=== PATIENT | female | born 1945 | race Caucasian/White ===

== ENCOUNTER → 2017-03-23 | Outpatient (REF) | payer MEDICARE, BC ==
[~2017-03-23] MED LIST: ATEN100T PO; CORE12.5 PO; ELIQ5TAB PO; HYDR12.55 PO; PACE200T PO; SIMV40TA2 PO
== END ==
LOC: M LAB REF 17:03
PROVIDERS: ATTEND Internal Medicine Medical Oncology
DX: D75.1 Secondary polycythemia (principal)

== ENCOUNTER 2023-12-31 19:25 | Inpatient (IN) | payer BC, MEDICAID ==
[~2023-12-31] VITALS: Ht 165.1 cm; Wt 76.4 kg
[~2023-12-31 19:25] MED LIST changes: -SIMV40TA2 PO; +SIMV40TA20 PO
[2023-12-31 20:14] LABS: BASO % 0.3 % (0.0-1.0); HEMATOCRIT 52.8 % (36.0-47.0); HEMOGLOBIN 17.6 g/dl (12.0-15.5); LYMPH # 0.7 10^3/uL (1.5-5.0); LYMPH % 6.8 % (24.0-44.0); MEAN CORPUSCULAR HEMOGLOBIN 30.8 pg (27.0-33.0); MEAN CORPUSCULAR HGB CONC 33.3 g/dl (32.0-36.5); MEAN CORPUSCULAR VOLUME 92.5 fl (80.0-96.0); MONO # 0.9 10^3/uL (0.0-0.8); MONO % 8.4 % (2.0-8.0); RED BLOOD COUNT 5.71 10^6/uL (4.00-5.40); WHITE BLOOD COUNT 10.7 10^3/uL (4.0-10.0)
[2023-12-31 20:29] LABS: INR 2.74; PARTIAL THROMBOPLASTIN TIME 40.6 SECONDS (24.8-34.2)
[2023-12-31 20:52] LABS: PLATELET COUNT, AUTOMATED 66 10^3/uL (150-450)
[2023-12-31 21:38] LABS: CK-MB VALUE MASS 60.3 NG/ML (<3.6)
[2023-12-31 21:39] LABS: MB/CK RELATIVE INDEX 8.04 (< OR =4)
[2023-12-31 21:44] LABS: CALCIUM LEVEL 9.4 MG/DL (8.3-10.6); CREATININE FOR GFR 2.39 MG/DL (0.55-1.30); POTASSIUM SERUM 5.5 MMOL/L (3.5-5.1)
[2023-12-31 21:47] LABS: FREE T4 0.94 NG/DL (0.89-1.76); THYROID STIMULATING HORMONE 0.153 uIU/ML (0.55-4.78)
[2023-12-31 21:51] LABS: PROCALCITONIN 0.45 ng/ml
[2023-12-31 21:53] LABS: ABG BASE EXCESS -6.4 (-2.0-2.0); ABG HCO3 15.7 MMOL/L (22.0-26.0); ABG O2 SATURATION 95.6 % (95.0-99.0); ABG PARTIAL PRESSURE CO2 25.2 mmHg (35.0-45.0); ABG PARTIAL PRESSURE O2 81.2 mmHg (75.0-100.0); ABG STANDARD HCO3 19.3 MMOL/L. (22.0-26.0); ABG TOTAL CO2 16.5 MMOL/L (23.0-31.0); ABG pH (ARTERIAL) 7.413 UNITS (7.350-7.450)
[2023-12-31] MEDS: PIPERACILLIN/TAZOBACTAM SOD 4.5 GM in D5W MINI-BAG PLUS 50 ML IV ONE (22:10)
[2023-12-31] MEDS: FUROSEMIDE 40MG/4ML VIAL IV ONE (22:11)
[2023-12-31 22:52] LABS: CK-MB VALUE MASS 61.1 NG/ML (<3.6)
[2023-12-31 23:35] LABS: MB/CK RELATIVE INDEX 8.58 (< OR =4)
[2024-01-01] MEDS ORDERED: DIGOXIN INJ 0.5 MG/2 ML AMP IV STA (00:48)
[2024-01-01] MEDS: dilTIAZem 25MG/5ML VIAL IV STA (00:54)
[2024-01-01] MEDS ORDERED: med rec comment (01:37)
[2024-01-01] MEDS ORDERED: HOME MED LIST COMPLETE! XX SCH (01:40)
[2024-01-01 02:03] LABS: DIGOXIN LEVEL 0.1 NG/ML (0.8-2.0)
[2024-01-01] MEDS: FUROSEMIDE 100MG/10ML VIAL IV STA (02:15)
[2024-01-01] MEDS: DOXYCYCLINE HYCLATE 100MG TABLET PO SCH (02:15)
[2024-01-01 03:20] VITALS: BP 143/97; TEMP 96.5; O2SAT 90
[2024-01-01 05:23] VITALS: BP 140/70
[2024-01-01] MEDS: CARVedilol 3.125 MG TAB PO ONE (05:23)
[2024-01-01] MEDS: cefTRIAXone SOD 1 GM in D5W MINI-BAG PLUS 50 ML IV SCH (05:23)
[2024-01-01 06:06] LABS: HEMATOCRIT 50.9 % (36.0-47.0); HEMOGLOBIN 17.6 g/dl (12.0-15.5); MEAN CORPUSCULAR HEMOGLOBIN 31.3 pg (27.0-33.0); MEAN CORPUSCULAR HGB CONC 34.6 g/dl (32.0-36.5); MEAN CORPUSCULAR VOLUME 90.4 fl (80.0-96.0); RED BLOOD COUNT 5.63 10^6/uL (4.00-5.40)
[2024-01-01 06:08] LABS: PLATELET COUNT, AUTOMATED 53 10^3/uL (150-450)
[2024-01-01 06:36] LABS: CK-MB VALUE MASS 47.2 NG/ML (<3.6)
[2024-01-01 06:38] LABS: BILIRUBIN,TOTAL 2.4 MG/DL (0.3-1.2); CALCIUM LEVEL 9.2 MG/DL (8.3-10.6); CREATININE FOR GFR 2.4 MG/DL (0.55-1.30); GLOMERULAR FILTRATION RATE 20.9 (>39); MAGNESIUM LEVEL 2.2 MG/DL (1.8-2.4); POTASSIUM SERUM 5.4 MMOL/L (3.5-5.1); TOTAL PROTEIN 5.2 G/DL (5.7-8.2)
[2024-01-01 06:43] LABS: MB/CK RELATIVE INDEX 9.32 (< OR =4)
[2024-01-01 06:44] LABS: PROCALCITONIN 0.4 ng/ml
[2024-01-01 08:02] VITALS: BP 115/89; TEMP 97; O2SAT 98
[2024-01-01] MEDS ORDERED: ASPIRIN 81MG ENTERIC TABLET PO SCH (09:00)
[2024-01-01] MEDS: FUROSEMIDE 100MG/10ML VIAL IV SCH (09:57)
[2024-01-01] MEDS: PANTOPRAZOLE 40MG TAB (PROTONIX) PO SCH (09:59)
[2024-01-01] MEDS: APIXABAN 5 MG TAB (ELIQUIS) PO SCH (09:59)
[2024-01-01] MEDS: metOLazone 5 MG TAB PO ONE (11:30)
[2024-01-01] MEDS: ACETAMINOPHEN TAB 650MG DOSE (2X325MG) PO PRN (11:31)
[2024-01-01 12:00] VITALS: BP 128/74; TEMP 98; O2SAT 90
[2024-01-01] MEDS ORDERED: HEPARIN SOD (PORCINE) 5000UNITS/ML 1ML VIAL/SYRINGE IV ONE (13:35)
[2024-01-01 14:06] LABS: CALCIUM LEVEL 8.7 MG/DL (8.3-10.6); CREATININE FOR GFR 2.32 MG/DL (0.55-1.30); GLOMERULAR FILTRATION RATE 21.7 (>39); POTASSIUM SERUM 4.9 MMOL/L (3.5-5.1)
[2024-01-01 14:20] LABS: HEPATITIS B SURFACE ANTIGEN NEGATIVE (NEGATIVE)
[2024-01-01 14:41] LABS: HEPATITIS C VIRUS ABY INDEX < 0.02 INDEX (<0.8)
[2024-01-01 14:42] LABS: HEPATITIS B CORE ANTIBODY IGM NEGATIVE (NEGATIVE)
[2024-01-01 15:15] LABS: PARTIAL THROMBOPLASTIN TIME 43.2 SECONDS (24.8-34.2)
[2024-01-01 15:37] LABS: FOLATE 8.4 NG/ML (>5.4)
[2024-01-01 15:39] LABS: VITAMIN B12 LEVEL > 2000 PG/ML (211-911)
[2024-01-01 15:42] LABS: FIBRINOGEN 102 MG/DL (268-480); INR 2.68; PROTHROMBIN TIME 27.5 SECONDS (12.5-14.5)
[2024-01-01 16:20] VITALS: BP 109/72; TEMP 97.5; O2SAT 99
[2024-01-01 16:20] LABS: D-DIMER QUANT > 20.00 ug/mL (<0.5)
[2024-01-01 18:34] VITALS: BP 115/80; TEMP 97; O2SAT 93
[2024-01-01] MEDS ORDERED: CARVedilol 3.125 MG TAB PO SCH (21:00)
[2024-01-01] MEDS ORDERED: HEPARIN SOD (PORCINE) 5000UNITS/ML 1ML VIAL/SYRINGE IV PRN (21:00)
[2024-01-01] MEDS ORDERED: HEPARIN DRIP 25,000 UNITS in IV 1 EA IV SCH (21:00)
[2024-01-01] MEDS ORDERED: NYSTATIN 100,000 UNITS/GM TOPICAL PWD 15GM TOP SCH (21:00)
== END 2024-01-01 19:04 | disposition short-term general hospital (02) | DRG 194 ==
LOC: M ED 19:25 → EDBD 19:25 → M ED INP 01-01 01:18 → M PCU 01-01 02:57
PROVIDERS: ADMIT Preventive Medicine Undersea and Hyperbaric Medicine; ATTEND Preventive Medicine Undersea and Hyperbaric Medicine
PROC: B246ZZZ Ultrasonography of Right and Left Heart (ICD-10-PCS; principal; 2024-01-01)
DX: I11.0 Hypertensive heart disease with heart failure (principal); J96.01 Acute respiratory failure with hypoxia; N17.9 Acute kidney failure, unspecified; J18.9 Pneumonia, unspecified organism; L89.152 Pressure ulcer of sacral region, stage 2; D69.6 Thrombocytopenia, unspecified; I27.20 Pulmonary hypertension, unspecified; I48.20 Chronic atrial fibrillation, unspecified; I70.223 Atherosclerosis of native arteries of extremities with rest pain, bilateral legs; J44.0 Chronic obstructive pulmonary disease with (acute) lower respiratory infection; D75.1 Secondary polycythemia; I73.9 Peripheral vascular disease, unspecified; Z79.01 Long term (current) use of anticoagulants; E66.9 Obesity, unspecified; E78.5 Hyperlipidemia, unspecified; M19.90 Unspecified osteoarthritis, unspecified site; Z88.1 Allergy status to other antibiotic agents; Z68.36 Body mass index [BMI] 36.0-36.9, adult; I50.9 Heart failure, unspecified

== ENCOUNTER → 2024-01-09 | Outpatient (REF) ==
[~2024-01-09] MED LIST changes: +ASPI81TA26 PO; +BUSP5TA PO; +DULC10SU2 PR; +FURO20TA2 PO; +METH25TAB PO; +METO1TAB7 PO; +MIDO5TA PO; +MILKSUS3 PO; +MIRA3350 PO; +PANT20TA6 PO; +POTA-151 PO; +SERT-141 PO; +SIMV10TA21 PO; +SPIR-10 PO; +med rec comment
[2024-01-09 08:25] LABS: HEMATOCRIT 43.2 % (36.0-47.0); HEMOGLOBIN 14.8 g/dl (12.0-15.5); MEAN CORPUSCULAR HEMOGLOBIN 31.2 pg (27.0-33.0); MEAN CORPUSCULAR HGB CONC 34.3 g/dl (32.0-36.5); MEAN CORPUSCULAR VOLUME 91.1 fl (80.0-96.0); RED BLOOD COUNT 4.74 10^6/uL (4.00-5.40); WHITE BLOOD COUNT 11.1 10^3/uL (4.0-10.0)
[2024-01-09 08:29] LABS: PLATELET COUNT, AUTOMATED 75 10^3/uL (150-450)
[2024-01-09 08:54] LABS: ALKALINE PHOSPHATASE 107 U/L (46-116); ALT/SGPT 32 U/L (7.0-40); AST/SGOT 30 U/L (<34); BILIRUBIN,TOTAL 1.4 MG/DL (0.3-1.2); BLOOD UREA NITROGEN 65 MG/DL (9-23); CALCIUM LEVEL 7.8 MG/DL (8.3-10.6); CARBON DIOXIDE LEVEL > 40.0 MMOL/L (20-31); CHLORIDE LEVEL 93 MMOL/L (98-107); CHOLESTEROL LEVEL 87 MG/DL (<200); CHOLESTEROL RISK RATIO 4.06 (<5); GLOMERULAR FILTRATION RATE 57.4 (>39); GLUCOSE, FASTING 81 MG/DL (74-106); HDL CHOLESTEROL 21.4 MG/DL (>40); LDL CHOLESTEROL 46.2 MG/DL (<100); NON-HDL-C 65.6 MG/DL; POTASSIUM SERUM 3.1 MMOL/L (3.5-5.1); SODIUM LEVEL 137 MMOL/L (136-145); TOTAL PROTEIN 4.4 G/DL (5.7-8.2); TRIGLYCERIDES LEVEL 97 MG/DL (<150)
== END ==
LOC: SKLAB2 07:19
PROVIDERS: ATTEND Internal Medicine
DX: I10 Essential (primary) hypertension (principal)

== ENCOUNTER 2024-01-10 11:49 | Inpatient (IN) | payer MEDICARE, BC, MEDICAID ==
[~2024-01-10] VITALS: Ht 165.1 cm; Wt 76.4 kg
[~2024-01-10 11:49] MED LIST changes: -ASPI81TA26 PO; -BUSP5TA PO; -DULC10SU2 PR; -FURO20TA2 PO; -METH25TAB PO; -METO1TAB7 PO; -MIDO5TA PO; -MILKSUS3 PO; -MIRA3350 PO; -PANT20TA6 PO; -POTA-151 PO; -SERT-141 PO; -SIMV10TA21 PO; -SPIR-10 PO
[2024-01-10] MEDS: METOPROLOL TART 50 MG TAB PO ONE (12:31)
[2024-01-10] MEDS: METOPROLOL 5 MG/5 ML VIAL IV SCH (12:35)
[2024-01-10 12:44] VITALS: BP 104/51
[2024-01-10 12:45] LABS: BASO % 0.2 % (0.0-1.0); EOS # 0.1 10^3/uL (0.0-0.5); EOS % 0.6 % (0.0-3.0); HEMATOCRIT 43.1 % (36.0-47.0); HEMOGLOBIN 14.3 g/dl (12.0-15.5); LYMPH # 1.9 10^3/uL (1.5-5.0); LYMPH % 17.1 % (24.0-44.0); MEAN CORPUSCULAR HEMOGLOBIN 30.8 pg (27.0-33.0); MEAN CORPUSCULAR HGB CONC 33.2 g/dl (32.0-36.5); MEAN CORPUSCULAR VOLUME 92.7 fl (80.0-96.0); MONO # 0.9 10^3/uL (0.0-0.8); MONO % 8.7 % (2.0-8.0); NEUTROPHILS # 7.9 10^3/uL (1.5-8.5); NEUTROPHILS % 73.1 % (36.0-66.0); RED BLOOD COUNT 4.65 10^6/uL (4.00-5.40); WHITE BLOOD COUNT 10.8 10^3/uL (4.0-10.0)
[2024-01-10 12:49] LABS: PLATELET COUNT, AUTOMATED 91 10^3/uL (150-450)
[2024-01-10 12:55] LABS: INR 1.28; PARTIAL THROMBOPLASTIN TIME 26.8 SECONDS (24.8-34.2); PROTHROMBIN TIME 15.6 SECONDS (12.5-14.5)
[2024-01-10 13:13] LABS: BLOOD UREA NITROGEN 80 MG/DL (9-23); CALCIUM LEVEL 8.3 MG/DL (8.3-10.6); CARBON DIOXIDE LEVEL 39 MMOL/L (20-31); CHLORIDE LEVEL 97 MMOL/L (98-107); CREATININE FOR GFR 0.94 MG/DL (0.55-1.30); GLOMERULAR FILTRATION RATE > 60.0 (>39); GLUCOSE, FASTING 97 MG/DL (74-106); MAGNESIUM LEVEL 1.8 MG/DL (1.8-2.4); POTASSIUM SERUM 3.4 MMOL/L (3.5-5.1); SODIUM LEVEL 143 MMOL/L (136-145)
[2024-01-10] MEDS: NS 500 ML IV ONE ×2 (14:07→16:01)
[2024-01-10] MEDS: MIDODRINE 5 MG TAB PO ONE (14:22)
[2024-01-10] MEDS ORDERED: ISOVUE-370 76% 100ML VIAL As Ordered ONE (14:29)
[2024-01-10] MEDS ORDERED: MIDO5TA PO (14:38)
[2024-01-10] MEDS ORDERED: METO1TAB7 PO (14:38)
[2024-01-10] MEDS ORDERED: ASPI81TA26 PO (14:38)
[2024-01-10] MEDS ORDERED: SERT-141 PO (14:38)
[2024-01-10] MEDS ORDERED: SPIR-10 PO (14:38)
[2024-01-10] MEDS ORDERED: BUSP5TA PO (14:38)
[2024-01-10] MEDS ORDERED: FURO20TA2 PO (14:38)
[2024-01-10] MEDS ORDERED: MIRA3350 PO (14:38)
[2024-01-10] MEDS ORDERED: MILKSUS3 PO (14:38)
[2024-01-10] MEDS ORDERED: SIMV10TA21 PO (14:38)
[2024-01-10] MEDS ORDERED: POTA-151 PO (14:38)
[2024-01-10] MEDS ORDERED: PANT20TA6 PO (14:38)
[2024-01-10] MEDS ORDERED: METH25TAB PO (14:38)
[2024-01-10] MEDS ORDERED: DULC10SU2 PR (14:38)
[2024-01-10] MEDS ORDERED: HOME MED LIST COMPLETE! XX SCH (14:45)
[2024-01-10] MEDS: PANTOPRAZOLE SODIUM 40 MG in D5W 50 ML IV SCH ×2 (15:02→19:46)
[2024-01-10] MEDS: OCTREOTIDE ACETATE 100MCG/ML VIAL **IV ADMINISTRATION ONLY IV ONE (15:02)
[2024-01-10] MEDS: PANTOPRAZOLE 40MG VIAL IV ONE (15:02)
[2024-01-10 16:08] LABS: HEMATOCRIT 36.9 % (36.0-47.0)
[2024-01-10 16:10] LABS: HEMOGLOBIN 12.3 g/dl (12.0-15.5)
[2024-01-10] MEDS: NOREPINEPHRINE 4MG IN D5 250ML 4 MG in IV 1 EA IV SCH (16:22)
[2024-01-10] MEDS ORDERED: IPRATROPIUM 0.5MG/ALBUTEROL 2.5MG INH SOL UD 3ML (DUONEB) NEB PRN (18:15)
[2024-01-10] MEDS ORDERED: ACETAMINOPHEN *IV* 1,000 MG in IV 1 EA IV PRN (18:15)
[2024-01-10] MEDS: MAG SULF 1GM/100ML (MAG RUN) 1 GM in IV 1 EA IV ONE (19:46)
[2024-01-10] MEDS: KCL 10MEQ/100ML SWI (KRUN) 10 MEQ in IV 1 EA IV SCH (21:18)
[2024-01-10 22:00] VITALS: BP 97/60; TEMP 97.5; O2SAT 89
[2024-01-11 04:00] VITALS: BP 82/64; TEMP 97.7; O2SAT 99
[2024-01-11 06:13] LABS: HEMATOCRIT 36.8 % (36.0-47.0); HEMOGLOBIN 12.1 g/dl (12.0-15.5); MEAN CORPUSCULAR HEMOGLOBIN 30.8 pg (27.0-33.0); MEAN CORPUSCULAR HGB CONC 32.9 g/dl (32.0-36.5); MEAN CORPUSCULAR VOLUME 93.6 fl (80.0-96.0); RED BLOOD COUNT 3.93 10^6/uL (4.00-5.40); WHITE BLOOD COUNT 9.1 10^3/uL (4.0-10.0)
[2024-01-11 06:24] LABS: PLATELET COUNT, AUTOMATED 91 10^3/uL (150-450)
[2024-01-11 06:28] LABS: CALCIUM LEVEL 7.9 MG/DL (8.3-10.6); CREATININE FOR GFR 0.99 MG/DL (0.55-1.30); GLOMERULAR FILTRATION RATE 58.1 (>39); POTASSIUM SERUM 4.8 MMOL/L (3.5-5.1)
[2024-01-11 07:49] VITALS: BP 106/65
[2024-01-11] MEDS ORDERED: ACETAMINOPHEN TAB 650MG DOSE (2X325MG) PO PRN (11:25)
[2024-01-11 11:50] LABS: THYROID STIMULATING HORMONE 0.149 uIU/ML (0.55-4.78)
[2024-01-11 11:51] LABS: FREE T4 0.9 NG/DL (0.89-1.76)
[2024-01-11] MEDS: DIGOXIN 0.125 MG TAB PO SCH (11:57)
[2024-01-11] MEDS: MIDODRINE 5 MG TAB PO SCH (11:57)
[2024-01-11 12:00] VITALS: BP 107/63; TEMP 97.5; O2SAT 17; O2SAT 97
[2024-01-11] MEDS: PANTOPRAZOLE 40MG TAB (PROTONIX) PO SCH (12:23)
[2024-01-11 20:00] VITALS: BP 107/62; TEMP 98.1; O2SAT 96
[2024-01-12 04:00] VITALS: BP 108/61; TEMP 97.7; O2SAT 99
[2024-01-12] MEDS ORDERED: DIGO0.123 PO (11:42)
[2024-01-12] MEDS ORDERED: PANT40TA29 PO (11:42)
[2024-01-12] MEDS ORDERED: METO1TAB32 PO (11:42)
== END 2024-01-12 13:40 | DRG 378 ==
LOC: EDBD 11:49 → M ED 11:49 → CANBEDREQ 17:36 → M ED INP 17:49 → M MS5PR 20:40
PROVIDERS: ADMIT Preventive Medicine Undersea and Hyperbaric Medicine; ATTEND Preventive Medicine Undersea and Hyperbaric Medicine
DX: K92.1 Melena (principal); D68.32 Hemorrhagic disorder due to extrinsic circulating anticoagulants; I50.22 Chronic systolic (congestive) heart failure; I48.91 Unspecified atrial fibrillation; J44.9 Chronic obstructive pulmonary disease, unspecified; E87.6 Hypokalemia; R41.82 Altered mental status, unspecified; I95.1 Orthostatic hypotension; N18.9 Chronic kidney disease, unspecified; I25.10 Atherosclerotic heart disease of native coronary artery without angina pectoris; I73.9 Peripheral vascular disease, unspecified; R09.02 Hypoxemia; Z66 Do not resuscitate; Z74.01 Bed confinement status; Z93.2 Ileostomy status; Z79.01 Long term (current) use of anticoagulants; Z79.82 Long term (current) use of aspirin; Z79.899 Other long term (current) drug therapy; Z88.1 Allergy status to other antibiotic agents

== ENCOUNTER → 2024-01-15 | Outpatient (REF) | payer BC, MEDICAID ==
[~2024-01-15] MED LIST changes: +ASPI81TA26 PO; +BUSP5TA PO; +DIGO0.123 PO; +DULC10SU2 PR; +FURO20TA2 PO; +METH25TAB PO; +METO1TAB32 PO; +METO1TAB7 PO; +MIDO5TA PO; +MILKSUS3 PO; +MIRA3350 PO; +PANT20TA6 PO; +PANT40TA29 PO; +POTA-151 PO; +SERT-141 PO; +SIMV10TA21 PO; +SPIR-10 PO
[2024-01-15 10:48] LABS: BLOOD UREA NITROGEN 18 MG/DL (9-23); CALCIUM LEVEL 8.2 MG/DL (8.3-10.6); CARBON DIOXIDE LEVEL 32 MMOL/L (20-31); CHLORIDE LEVEL 102 MMOL/L (98-107); CREATININE FOR GFR 0.93 MG/DL (0.55-1.30); GLOMERULAR FILTRATION RATE > 60.0 (>39); GLUCOSE, FASTING 142 MG/DL (74-106); POTASSIUM SERUM 4.1 MMOL/L (3.5-5.1); SODIUM LEVEL 139 MMOL/L (136-145)
== END ==
LOC: SKLAB2 07:00
PROVIDERS: ATTEND Internal Medicine
DX: Z79.899 Other long term (current) drug therapy (principal)

== ENCOUNTER → 2024-01-16 | Outpatient (REF) ==
[2024-01-16 11:42] LABS: BLOOD UREA NITROGEN 20 MG/DL (9-23); CALCIUM LEVEL 8.6 MG/DL (8.3-10.6); CARBON DIOXIDE LEVEL 30 MMOL/L (20-31); CHLORIDE LEVEL 105 MMOL/L (98-107); CREATININE FOR GFR 0.96 MG/DL (0.55-1.30); GLOMERULAR FILTRATION RATE > 60.0 (>39); GLUCOSE, FASTING 120 MG/DL (74-106); POTASSIUM SERUM 4.3 MMOL/L (3.5-5.1); SODIUM LEVEL 142 MMOL/L (136-145)
== END ==
LOC: SKLAB2 07:00
PROVIDERS: ATTEND Internal Medicine
DX: I50.9 Heart failure, unspecified (principal)

== ENCOUNTER → 2024-01-26 | Outpatient (REF) ==
[2024-01-26 14:46] LABS: HEMATOCRIT 40.9 % (36.0-47.0); HEMOGLOBIN 13.7 g/dl (12.0-15.5); MEAN CORPUSCULAR HEMOGLOBIN 31.3 pg (27.0-33.0); MEAN CORPUSCULAR HGB CONC 33.5 g/dl (32.0-36.5); MEAN CORPUSCULAR VOLUME 93.4 fl (80.0-96.0); PLATELET COUNT, AUTOMATED 165 10^3/uL (150-450); RED BLOOD COUNT 4.38 10^6/uL (4.00-5.40); WHITE BLOOD COUNT 15.7 10^3/uL (4.0-10.0)
[2024-01-26 15:11] LABS: ALBUMIN 2.7 G/DL (3.2-5.2); ALKALINE PHOSPHATASE 155 U/L (46-116); ALT/SGPT 16 U/L (7.0-40); AST/SGOT 25 U/L (<34); BILIRUBIN,TOTAL 1.1 MG/DL (0.3-1.2); BLOOD UREA NITROGEN 28 MG/DL (9-23); CALCIUM LEVEL 9.1 MG/DL (8.3-10.6); CARBON DIOXIDE LEVEL 28 MMOL/L (20-31); CHLORIDE LEVEL 101 MMOL/L (98-107); CREATININE FOR GFR 0.94 MG/DL (0.55-1.30); GLOMERULAR FILTRATION RATE > 60.0 (>39); GLUCOSE, FASTING 123 MG/DL (74-106); POTASSIUM SERUM 4.3 MMOL/L (3.5-5.1); SODIUM LEVEL 137 MMOL/L (136-145); TOTAL PROTEIN 6.5 G/DL (5.7-8.2)
== END ==
LOC: SKLAB2 13:25
PROVIDERS: ATTEND Internal Medicine
DX: I50.9 Heart failure, unspecified (principal)

== ENCOUNTER → 2024-01-27 | Outpatient (REF) | payer BC, MEDICAID, MEDICARE | LOC: SKLAB2 12:56 | PROVIDERS: ATTEND Nurse Practitioner Family | DX: D72.829 Elevated white blood cell count, unspecified (principal); M81.0 Age-related osteoporosis without current pathological fracture ==

== ENCOUNTER → 2024-01-30 | Outpatient (REF) | LOC: EEVIPCON 07:42 → SKLAB2 07:42 | PROVIDERS: ATTEND Internal Medicine | DX: D72.829 Elevated white blood cell count, unspecified (principal) ==

== ENCOUNTER → 2024-02-02 | Outpatient (REF) | payer BC, MEDICAID ==
[2024-02-02 11:59] LABS: BASO % 0.3 % (0.0-1.0); EOS % 0.3 % (0.0-3.0); HEMATOCRIT 42.1 % (36.0-47.0); HEMOGLOBIN 14.2 g/dl (12.0-15.5); LYMPH # 0.6 10^3/uL (1.5-5.0); LYMPH % 3.6 % (24.0-44.0); MEAN CORPUSCULAR HEMOGLOBIN 30.7 pg (27.0-33.0); MEAN CORPUSCULAR HGB CONC 33.7 g/dl (32.0-36.5); MEAN CORPUSCULAR VOLUME 91.1 fl (80.0-96.0); MONO # 1.2 10^3/uL (0.0-0.8); MONO % 7.5 % (2.0-8.0); NEUTROPHILS % 87.8 % (36.0-66.0); PLATELET COUNT, AUTOMATED 160 10^3/uL (150-450); RED BLOOD COUNT 4.62 10^6/uL (4.00-5.40)
[2024-02-02 12:28] LABS: ALBUMIN 2.8 G/DL (3.2-5.2); BILIRUBIN,TOTAL 0.9 MG/DL (0.3-1.2); CALCIUM LEVEL 9.2 MG/DL (8.3-10.6); CREATININE FOR GFR 1.24 MG/DL (0.55-1.30); GLOMERULAR FILTRATION RATE 44.8 (>39); POTASSIUM SERUM 4.1 MMOL/L (3.5-5.1)
== END ==
LOC: SKLAB2 11:17
PROVIDERS: ATTEND Internal Medicine
DX: U07.1 COVID-19 (principal)

== ENCOUNTER → 2024-02-02 | Outpatient (REF) | payer BC, MEDICAID | LOC: SKLAB2 09:20 | PROVIDERS: ATTEND Internal Medicine | DX: U07.1 COVID-19 (principal) ==

== ENCOUNTER → 2024-02-05 | Outpatient (REF) | payer BC, MEDICAID ==
[2024-02-05 14:54] LABS: DIGOXIN LEVEL 1.3 NG/ML (0.8-2.0)
[2024-02-05 14:55] LABS: ALBUMIN 2.7 G/DL (3.2-5.2); BILIRUBIN,TOTAL 0.8 MG/DL (0.3-1.2); CALCIUM LEVEL 8.7 MG/DL (8.3-10.6); CREATININE FOR GFR 2.24 MG/DL (0.55-1.30); GLOMERULAR FILTRATION RATE 22.6 (>39); POTASSIUM SERUM 4.3 MMOL/L (3.5-5.1); TOTAL PROTEIN 6.6 G/DL (5.7-8.2)
[2024-02-05 14:56] LABS: BASO % 0.1 % (0.0-1.0); HEMATOCRIT 43.5 % (36.0-47.0); HEMOGLOBIN 14.2 g/dl (12.0-15.5); LYMPH # 0.8 10^3/uL (1.5-5.0); MEAN CORPUSCULAR HEMOGLOBIN 30.1 pg (27.0-33.0); MEAN CORPUSCULAR HGB CONC 32.6 g/dl (32.0-36.5); MEAN CORPUSCULAR VOLUME 92.2 fl (80.0-96.0); MONO # 0.6 10^3/uL (0.0-0.8); MONO % 3.6 % (2.0-8.0); NEUTROPHILS # 13.8 10^3/uL (1.5-8.5); NEUTROPHILS % 90.7 % (36.0-66.0); PLATELET COUNT, AUTOMATED 133 10^3/uL (150-450); RED BLOOD COUNT 4.72 10^6/uL (4.00-5.40); WHITE BLOOD COUNT 15.2 10^3/uL (4.0-10.0)
== END ==
LOC: SKLAB2 11:35
PROVIDERS: ATTEND Internal Medicine
DX: I48.91 Unspecified atrial fibrillation (principal); U07.1 COVID-19

== ENCOUNTER → 2024-02-06 | Outpatient (REF) | payer BC, MEDICAID, MEDICARE ==
[2024-02-06 08:22] LABS: CALCIUM LEVEL 8.1 MG/DL (8.3-10.6); GLOMERULAR FILTRATION RATE 25.8 (>39); POTASSIUM SERUM 4.6 MMOL/L (3.5-5.1)
== END ==
LOC: SKLAB2 07:13
PROVIDERS: ATTEND Internal Medicine
DX: N17.9 Acute kidney failure, unspecified (principal); U07.1 COVID-19

== ENCOUNTER 2024-02-09 07:15 | Inpatient (IN) | payer BC, MEDICARE, MEDICAID ==
[~2024-02-09] VITALS: Ht 154.9 cm; Wt 51.5 kg
[2024-02-09 08:14] LABS: BASO # 0.1 10^3/uL (0.0-0.2); BASO % 0.2 % (0.0-1.0); EOS % 0.1 % (0.0-3.0); HEMOGLOBIN 15.5 g/dl (12.0-15.5); LYMPH % 4.8 % (24.0-44.0); MEAN CORPUSCULAR VOLUME 96.9 fl (80.0-96.0); MONO # 0.8 10^3/uL (0.0-0.8); MONO % 3.8 % (2.0-8.0); NEUTROPHILS # 18.4 10^3/uL (1.5-8.5); NEUTROPHILS % 90.2 % (36.0-66.0); RED BLOOD COUNT 5.16 10^6/uL (4.00-5.40); WHITE BLOOD COUNT 20.4 10^3/uL (4.0-10.0)
[2024-02-09] MEDS: NS IV STA (08:20)
[2024-02-09] MEDS: CEFEPIME HCL 2 GM in D5W MINI-BAG PLUS 50 ML IV ONE (08:23)
[2024-02-09 08:36] LABS: PLATELET COUNT, AUTOMATED 47 10^3/uL (150-450)
[2024-02-09] MEDS: ACETAMINOPHEN *IV* 1,000 MG in IV 1 EA IV ONE (08:42)
[2024-02-09 08:45] LABS: DIGOXIN LEVEL 0.9 NG/ML (0.8-2.0)
[2024-02-09 08:46] LABS: CALCIUM LEVEL 9.5 MG/DL (8.3-10.6); CREATININE FOR GFR 2.67 MG/DL (0.55-1.30); GLOMERULAR FILTRATION RATE 18.5 (>39); POTASSIUM SERUM 3.5 MMOL/L (3.5-5.1)
[2024-02-09] MEDS: PANTOPRAZOLE 40MG VIAL IV SCH (09:00)
[2024-02-09] MEDS: NS 500 ML IV ONE (09:02)
[2024-02-09] MEDS: DIGOXIN INJ 0.5 MG/2 ML AMP IV STA (09:35)
[2024-02-09] MEDS ORDERED: HEPARIN SOD (PORCINE) 5000UNITS/ML 1ML VIAL/SYRINGE SC SCH (09:40)
[2024-02-09 10:00] VITALS: BP 131/65; TEMP 98.9; O2SAT 80
[2024-02-09 10:24] VITALS: BP 125/58
[2024-02-09 11:00] VITALS: BP 129/66
[2024-02-09 11:09] VITALS: BP 151/67
[2024-02-09 11:10] VITALS: BP 134/71
[2024-02-09 11:15] VITALS: BP 123/80
[2024-02-09] MEDS ORDERED: LORazepam 1 MG TAB PO PRN ×2 (11:50→12:05)
[2024-02-09] MEDS: SCOPOLAMINE 1MG TRANSDERMAL PATCH TOP PRN (12:07)
[2024-02-09] MEDS: ONDANSETRON 4MG 2ML VIAL IV PRN (12:07)
[2024-02-09] MEDS: MORPHINE 2 MG/ML 1ML VIAL IV PRN (12:08)
[2024-02-09] MEDS: LORazepam 2 MG/ML 1ML VIAL IV PRN ×2 (12:29→14:30)
[2024-02-09] MEDS ORDERED: MORPHINE 2 MG/ML 1ML VIAL IV PRN (12:40)
== END 2024-02-09 20:38 | disposition expired | DRG 720 ==
LOC: EDBD 07:15 → M ED 07:15 → M ED INP 09:39 → M ICU 10:14
PROVIDERS: ADMIT Internal Medicine Pulmonary Disease; ATTEND General Practice
DX: A41.9 Sepsis, unspecified organism (principal); G93.41 Metabolic encephalopathy; J96.01 Acute respiratory failure with hypoxia; U07.1 COVID-19; J12.82 Pneumonia due to coronavirus disease 2019; R65.21 Severe sepsis with septic shock; E87.20 Acidosis, unspecified; N17.9 Acute kidney failure, unspecified; E87.1 Hypo-osmolality and hyponatremia; I50.22 Chronic systolic (congestive) heart failure; J44.9 Chronic obstructive pulmonary disease, unspecified; E86.0 Dehydration; D69.6 Thrombocytopenia, unspecified; Z51.5 Encounter for palliative care; Z66 Do not resuscitate; F41.9 Anxiety disorder, unspecified; I73.9 Peripheral vascular disease, unspecified; I48.91 Unspecified atrial fibrillation; F32.A Depression, unspecified; I25.5 Ischemic cardiomyopathy; E03.9 Hypothyroidism, unspecified; I25.10 Atherosclerotic heart disease of native coronary artery without angina pectoris; Z93.2 Ileostomy status; I11.0 Hypertensive heart disease with heart failure; Z74.01 Bed confinement status; Z79.899 Other long term (current) drug therapy; Z88.1 Allergy status to other antibiotic agents